=== PATIENT | male | born 1990 | race Caucasian/White ===

== ENCOUNTER 2021-03-24 17:43 | Emergency (ER) | payer OTHER, MEDICAID ==
[~2021-03-24] VITALS: Ht 177.8 cm; Wt 79.4 kg
[2021-03-24 17:45] VITALS: BP 163/97
--- NOTE | 2021-03-24 17:48 | NUR ---
MIGUEL ALS TO ER BED 5
--- NOTE | 2021-03-24 17:50 | NUR ---
30 y/o male BIBA from work. S/P seizure like activity. seizure precautions in place at this time. AOX4, able to make needs known. Able to follow simple commands. Trachea midline, resp even and unlabored on RA. Lungs clear upon auscultation. . Abd soft and non-tender. + BS heard x 4. Bilat strong radial pulses +3, strong bilat pedal pulses noted. [id number] heard upon ausculation pmh: htn med: denies nka
--- NOTE | 2021-03-24 18:00 | NUR ---
EKG done and given to GERMAIN Cruz
--- NOTE | 2021-03-24 18:10 | NUR ---
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
--- NOTE | 2021-03-24 18:30 | NUR ---
Pt taken to CT at this time
[2021-03-24 18:46] LABS: BASOPHILS # (AUTO) 0.1 K/uL (0.00-0.22); BASOPHILS % (AUTO) 1.1 % (0.0-2.0); EOSINOPHILS # (AUTO) 0.3 K/uL (0-0.4); EOSINOPHILS % (AUTO) 3.7 % (0.0-4.0); HEMATOCRIT 46.2 % (36-52); HEMOGLOBIN 15.4 g/dL (12.0-18.0); LYMPHOCYTES # (AUTO) 2.1 K/uL (2.0-11.5); LYMPHOCYTES % (AUTO) 26.9 % (20.5-51.1); MEAN CORPUSCULAR HEMOGLOBIN 30 pg (27-31); MEAN CORPUSCULAR HGB CONC 34 g/dL (33-37); MEAN CORPUSCULAR VOLUME 89.6 fL (80-94); MONOCYTES # (AUTO) 0.5 K/uL (0.8-1.0); MONOCYTES % (AUTO) 6.2 % (1.7-9.3); NEUTROPHILS # (AUTO) 4.8 K/uL (1.8-7.7); NEUTROPHILS % (AUTO) 62.1 % (42.2-75.2); PLATELET COUNT (AUTO) 383 K/uL (140-450); RED BLOOD CELL COUNT(AUTO) 5.15 MIL/uL (4.20-6.10); RED CELL DISTRIBUTION WIDTH 12.7 % (11.6-13.7); WHITE BLOOD COUNT (AUTO) 7.8 K/uL (4.8-10.8)
--- NOTE | 2021-03-24 18:50 | NUR ---
Pt returned to bed 05 at this time
[2021-03-24 19:13] LABS: ANION GAP 19.7 (8-16); CARBON DIOXIDE 19.9 mmol/L (21-32); CREATININE 1.1 mg/dL (0.6-1.3); POTASSIUM 3.6 mmol/L (3.5-5.1); TOTAL BILIRUBIN 0.4 mg/dL (0.0-1.0)
--- NOTE | 2021-03-24 19:17 | NUR ---
Pt report given to LINDA RODRIGES. Transfer of care at this time.
--- NOTE | 2021-03-24 19:31 | NUR ---
SPOKE WITH PATIENT SISTER, STATES PATIENT HAS HISTORY OF HYPERTENSION. ALSO HAS A FAMILY HISTORY OF EPILEPSY AND CARDIAC ISSUES. FATHER AT 35 [place]
--- NOTE | 2021-03-24 22:37 | NUR ---
PATIENT CLEARED FOR DISHCARGE AT THIS TIME. ADVISED TO FOLLOW UP WITH PCP AND RETURN IF CONDITION WORSENS. NO OTHER COMPLAINTS OR CONCERNS FOLLOWING DISHCARGE TEACHING.
[2021-03-24 22:38] VITALS: BP 137/88
[2021-03-25 00:24] LABS: ALBUMIN 4.7 g/dL (3.4-5.0)
== END 2021-03-24 22:37 | disposition home or self-care (01) ==
LOC: MED 17:43
DX: R56.9 Unspecified convulsions (principal); R42 Dizziness and giddiness; I10 Essential (primary) hypertension
CPT/HCPCS: 36415; 70450; 80053; 84484; 85025; 93005; 99285